=== PATIENT | male | born 1980 | race Caucasian/White ===

== ENCOUNTER 2021-03-17 15:19 | Emergency (ER) | payer OTHER ==
[2021-03-17] MEDS ORDERED: Sodium Chloride 0.9% 1000 ML 1,000 ML ONE (15:39)
[2021-03-17] MEDS ORDERED: Sodium Chloride 0.9% 1000 ML 1,000 ML IV SCH (15:45)
[2021-03-17 15:46] LABS: Absolute Neutrophil Ct (ANC) 5.66 (1.4-6.9); BASOPHIL % 0.2 % (0.0-0.4); Basophil (Absolute #) 0.02 (0-0.4); Eosinophil % 0.6 % (0.00-5.0); Eosinophil (Absolute #) 0.05 (0-0.5); Hematocrit 48.1 % (42-50); Hemoglobin 15.3 gm/dl (12.5-18.0); Lymphocyte (Absolute #) 1.87 (1.0-4.6); Lymphocytes % 22.6 % (24.0-44.0); Mean Cell Volume 97.8 fl (78-100); Mean Corpuscular Hemoglobin 31.1 pg (26-32); Mean Corpuscular Hgb Concent. 31.8 g/dl (32-36); Mean Platelet Volume 9.7 fl (7.5-11.0); Monocyte (Absolute #) 0.69 (0.0-1.3); Monocytes % 8.3 % (0.0-12.0); Neutrophil % 68.3 % (36.0-66.0); Platelet Count 258 K/mm3 (150-450); Red Blood Count 4.92 M/mm3 (4.1-5.6); Red Cell Distribution Width 13.4 % (11.5-14.0); White Blood Count 8.3 K/mm3 (4.0-10.5)
[2021-03-17] MEDS ORDERED: Compazine 10 MG/2 ML IV ONE (15:48)
[2021-03-17] MEDS ORDERED: ANTIVERT 25 MG PO ONE (15:48)
[2021-03-17 15:50] LABS: Appearance CLEAR (CLEAR); Bilirubin NEGATIVE (NEGATIVE); Blood NEGATIVE Ery/ul (0-5); Glucose NEGATIVE (NEGATIVE); Ketones NEGATIVE (NEGATIVE); Leukocyte Esterase TRACE (NEGATIVE); Mucus SLIGHT /HPF (NEGATIVE); Nitrite NEGATIVE (NEGATIVE); Protein,Urine Dip NEGATIVE (Negative); Specific Gravity 1.008 (1.005-1.025); Urobilinogen NEGATIVE mg/dL (0-1)
[2021-03-17] MEDS ORDERED: Compazine 10 MG/2 ML ONE (15:50)
[2021-03-17] MEDS ORDERED: ANTIVERT 25 MG ONE (15:50)
[2021-03-17 15:51] LABS: ALBUMIN 4.2 g/dL (3.5-5.0); ALKALINE PHOSPHATASE 60 U/L (38-126); ANION GAP 14.4 MEQ/L (5-15); BLOOD UREA NITROGEN 12 mg/dL (9-20); CHLORIDE 103 mmol/L (98-107); Calcium 8.9 mg/dL (8.4-10.2); Carbon Dioxide 27 mmol/L (22-30); EST GLOMERULAR FILTRATION RATE > 60.0 ML/MIN; ETHYL ALCOHOL < 10 mg/dL (0-10); Glucose 122 mg/dL (74-106); MAGNESIUM 1.9 mg/dL (1.6-2.3); Potassium 4.5 mmol/L (3.5-5.1); SGOT/AST 31 U/L (17-59); SGPT/ALT 47 U/L (0-50); SODIUM 140 mmol/L (137-145)
[2021-03-17 16:05] LABS: Amphetamine,Urine NEGATIVE (NEGATIVE); Barbiturate,Urine NEGATIVE (NEGATIVE); Benzodiazepine,Urine NEGATIVE (NEGATIVE); Cocaine,Urine NEGATIVE (NEGATIVE); Methadone,Urine NEGATIVE (NEGATIVE); Opiate,Urine NEGATIVE (NEGATIVE); PCP,Urine NEGATIVE (NEGATIVE); THC,Urine NEGATIVE (NEGATIVE)
--- NOTE | 2021-03-17 17:53 | ERPHSYRPT ---
- History of Present Illness Time Seen by Provider: 03/17/21 15:40 Source: patient Exam Limitations: no limitations Patient Subjective Stated Complaint: pt has c/o dizziness, headache, nausea, vomiting, and pain in the base of the neck. pt states that he was watching tv an d the flash of the tv caused him to have pain in his eyes, head, dizziness, nausea/vomitting. pt PERRLA, breathing easily on cot, breath sounds clear. skin pwd. no weakness noted. Triage Nursing Assessment: see above Physician History: Patient is a 40-year-old male presents to our emergency department for evaluation of headache dizziness nausea and vomiting. Patient has been experiencing these symptoms for approximately 1 month. Patient followed up with his primary care doctor. An MRI was completed. MRI suggestive of possible pseudotumor cerebri. Patient currently has an appointment scheduled with a neurologist in [place]. However the appointment is not until May. Patient states he was at home watching TV. Patient states the flashing lights on the TV triggered his symptoms. No trauma. No fever. Headache is primarily at the base of his neck. Symptoms are mild to moderate in intensity. No specific worsening improving factors. Patient is otherwise healthy. He voices no other complaints or concerns at this time. Timing/Duration: today Severity: moderate Modifying Factors: Improves With: other (Bright lights while watching television triggered symptoms.) Associated Symptoms: nausea, vomiting, No shortness of breath, No chest pain, No fever, No syncope, No seizure Allergies/Adverse Reactions: codeine Allergy (Verified 03/17/21 15:31) Penicillins Allergy (Verified 03/17/21 15:31) Home Medications: Albuterol 2.5 mg/3 ml Neb [Proventil 2.5 mg/3 ml Neb] 1 vial IH Q6HPRN PRN 03/17/21 [History] Fluticasone/Umeclidin/Vilanter [Trelegy Ellipta 100-62.5-25] 2 puff IH Q6H 03/17/21 [History] Metoprolol Succinate 50 mg PO DAILY 03/17/21 [History] Trazodone HCl 50 mg [Desyrel 50 mg] 50 mg PO DAILY 03/17/21 [History] Hx Tetanus, Diphtheria Vaccination/Date Given: Yes Hx Influenza Vaccination/Date Given: Yes Hx Pneumococcal Vaccination/Date Given: No Immunizations Up to Date: Yes Travel Risk - International Travel Have you traveled outside of the country in past 3 weeks: No - Coronavirus Screening Are you exhibiting any of the following symptoms?: No Close contact with a COVID-19 positive Pt in past 14-21 Days: No - Vaccine Status Have you recieved a Covid-19 vaccination: No - Review of Systems Constitutional: No Symptoms, No Fever, No Chills Eyes: No Symptoms Ears, Nose, & Throat: No Symptoms Respiratory: No Symptoms, No Cough, No Dyspnea Cardiac: No Symptoms, No Chest Pain, No Edema, No Syncope Abdominal/Gastrointestinal: No Symptoms, No Abdominal Pain, No Nausea, No Vomiting, No Diarrhea Genitourinary Symptoms: No Symptoms, No Dysuria Musculoskeletal: No Symptoms, No Back Pain, No Neck Pain Skin: No Symptoms, No Rash Neurological: No Symptoms, No Dizziness, No Focal Weakness, No Sensory Changes Psychological: No Symptoms Endocrine: No Symptoms Hematologic/Lymphatic: No Symptoms Immunological/Allergic: No Symptoms All Other Systems: Reviewed and Negative - Past Medical History Pertinent Past Medical History: Yes Neurological History: No Pertinent History ENT History: No Pertinent History Cardiac History: Hypertension Respiratory History: COPD Endocrine Medical History: No Pertinent History Musculoskeletal History: No Pertinent History GI Medical History: No Pertinent History History: No Pertinent History Psycho-Social History: No Pertinent History Male Reproductive Disorders: No Pertinent History - Past Surgical History Past Surgical History: No - Social History Smoking Status: Current every day smoker Drug Use: none - Nursing Vital Signs Nursing Vital Signs: Initial Vital Signs Pulse Rate 92 H 03/17/21 15:20 Respiratory Rate 24 03/17/21 15:20 Blood Pressure 177/110 03/17/21 15:20 O2 Sat by Pulse Oximetry 94 L 03/17/21 15:20 Pain Scale Pain Intensity 2 - Physical Exam General Appearance: no apparent distress, alert Eye Exam: PERRL/EOMI, eyes nml inspection Ears, Nose, Throat Exam: normal ENT inspection, TMs normal, pharynx normal, moist mucous membranes Neck Exam: normal inspection, non-tender, supple, full range of motion Respiratory Exam: normal breath sounds, lungs clear, airway intact, No respiratory distress Cardiovascular Exam: regular rate/rhythm, normal heart sounds, normal peripheral pulses Gastrointestinal/Abdomen Exam: soft, normal bowel sounds, No tenderness, No mass Back Exam: normal inspection, normal range of motion, No CVA tenderness, No vertebral tenderness Extremity Exam: normal inspection, normal range of motion, pelvis stable Neurologic Exam: alert, oriented x 3, cooperative, normal mood/affect, nml cerebellar function, nml station & gait, sensation nml, No motor deficits Skin Exam: normal color, warm, dry, No rash Lymphatic Exam: No adenopathy SpO2 Interpretation: normal SpO2: 94 O2 Delivery: Room Air - Course Nursing assessment & vital signs reviewed: Yes EKG Interpreted by Me: RATE, Sinus Rhythm, NORMAL AXIS, NORMAL INTERVALS - CT Exams Head CT Interpretation: Tele-radiologist Report (Continued normal CT head without and CT head venogram compared to MRI brain with contrast exam 7 days ago from [facility] Stacey Pantoja.) Ordered Tests: Active Orders 24 hr Category Date Time Status Recovery Assistant STAT Care 03/17/21 15:37 Active EKG-ER Only STAT Care 03/17/21 15:36 Active IV Insertion STAT Care 03/17/21 15:36 Active Pulse Oximetry (ED) STAT Care 03/17/21 15:36 Active HEAD W/WO CONTRAST [CT] Stat Exams 03/17/21 18:16 Taken CBC W DIFF Stat Lab 03/17/21 15:40 Completed CMP Stat Lab 03/17/21 15:40 Completed ETHYL ALCOHOL Stat Lab 03/17/21 15:40 Completed MAGNESIUM Stat Lab 03/17/21 15:40 Completed TROPONIN Q3H Lab 03/17/21 15:40 Completed TROPONIN Q3H Lab 03/17/21 19:08 Completed TROPONIN Q3H Lab 03/17/21 21:45 Ordered TROPONIN Q3H Lab 03/18/21 00:45 Ordered TROPONIN Q3H Lab 03/18/21 03:45 Ordered UA W/RFX UR CULTURE Stat Lab 03/17/21 15:37 Completed Urine Triage Profile Stat Lab 03/17/21 15:37 Completed Medication Summary Generic Name Dose Route Start Last Admin Trade Name Freq PRN Reason Stop Dose Admin Sodium Chloride 1,000 mls @ 100 mls/hr 03/17/21 15:45 03/17/21 15:40 Sodium Chloride 0.9% 1000 Ml IV 04/16/21 15:44 100 mls/hr .Q10H EDEN Administration Discontinued Medications Generic Name Dose Route Start Last Admin Trade Name Freq PRN Reason Stop Dose Admin Meclizine HCl 25 mg 03/17/21 15:48 03/17/21 15:51 Meclizine Hcl 25 Mg Tablet PO 03/17/21 15:49 25 mg STAT ONE Administration Meclizine HCl Confirm 03/17/21 15:50 Meclizine Hcl 25 Mg Tablet Administered 03/17/21 15:51 Dose 25 mg .ROUTE .[email or web address] ONE Prochlorperazine Edisylate 10 mg 03/17/21 15:48 03/17/21 15:51 Prochlorperazine Edisylate 10 Mg/2 Ml Vial IV 03/17/21 15:49 10 mg STAT ONE Administration Prochlorperazine Edisylate Confirm 03/17/21 15:50 Prochlorperazine Edisylate 10 Mg/2 Ml Vial Administered 03/17/21 15:51 Dose 10 mg .ROUTE .[employer] ONE Lab/Rad Data: Laboratory Result Diagrams 03/17/21 15:40 03/17/21 15:40 Laboratory Results 03/17/21 03/17/21 03/17/21 Range/Units 19:08 15:40 15:40 WBC (4.0-10.5) K/mm3 RBC (4.1-5.6) M/mm3 Hgb (12.5-18.0) gm/dl Hct (42-50) % MCV (78-100) fl MCH (26-32) pg MCHC (32-36) g/dl RDW (11.5-14.0) % Plt Count (150-450) K/mm3 MPV (7.5-11.0) fl Gran % (36.0-66.0) % Eos # (Auto) (0-0.5) Absolute Lymphs (auto) (1.0-4.6) Absolute Monos (auto) (0.0-1.3) Lymphocytes % (24.0-44.0) % Monocytes % (0.0-12.0) % Eosinophils % (0.00-5.0) % Basophils % (0.0-0.4) % Absolute Granulocytes (1.4-6.9) Basophils # (0-0.4) Sodium 140 (137-145) mmol/L Potassium 4.5 (3.5-5.1) mmol/L Chloride 103 (98-107) mmol/L Carbon Dioxide 27 (22-30) mmol/L Anion Gap 14.4 (5-15) MEQ/L BUN 12 (9-20) mg/dL Creatinine 0.90 (0.66-1.25) mg/dL Estimated GFR > 60.0 ML/MIN Glucose 122 H (74-106) mg/dL Calcium 8.9 (8.4-10.2) mg/dL Magnesium 1.9 (1.6-2.3) mg/dL Total Bilirubin 0.50 (0.2-1.3) mg/dL AST 31 (17-59) U/L ALT 47 (0-50) U/L Alkaline Phosphatase 60 (38-126) U/L Troponin I 0.020 < 0.012 (0.000-0.034) ng/mL Serum Total Protein 7.0 (6.3-8.2) g/dL Albumin 4.2 (3.5-5.0) g/dL Urine Color (YELLOW) Urine Appearance (CLEAR) Urine pH (5-6) Ur Specific [place] (1.005-1.025) Urine Protein (Negative) Urine Ketones (NEGATIVE) Urine Blood (0-5) Cuco/ul Urine Nitrite (NEGATIVE) Urine Bilirubin (NEGATIVE) Urine Urobilinogen (0-1) mg/dL Ur Leukocyte Esterase (NEGATIVE) Urine WBC (Auto) (0-5) /HPF Urine RBC (Auto) (0-2) /HPF U Epithel Cells (Auto) (FEW) /HPF Urine Bacteria (Auto) (NEGATIVE) /HPF Urine Mucus (Auto) (NEGATIVE) /HPF Urine Culture Reflexed (NO) Urine Glucose (NEGATIVE) mg/dL Urine Opiates Level (NEGATIVE) Ur Methadone (NEGATIVE) Urine Barbiturates (NEGATIVE) Ur Phencyclidine (PCP) (NEGATIVE) Urine Amphetamine (NEGATIVE) U Benzodiazepine Level (NEGATIVE) Urine Cocaine (NEGATIVE) Urine Marijuana (THC) (NEGATIVE) Ethyl Alcohol < 10 (0-10) mg/dL 03/17/21 03/17/21 03/17/21 Range/Units 15:40 15:37 15:37 WBC 8.3 (4.0-10.5) K/mm3 RBC 4.92 (4.1-5.6) M/mm3 Hgb 15.3 (12.5-18.0) gm/dl Hct 48.1 (42-50) % MCV 97.8 (78-100) fl MCH 31.1 (26-32) pg MCHC 31.8 L (32-36) g/dl RDW 13.4 (11.5-14.0) % Plt Count 258 (150-450) K/mm3 MPV 9.7 (7.5-11.0) fl Gran % 68.3 H (36.0-66.0) % Eos # (Auto) 0.05 (0-0.5) Absolute Lymphs (auto) 1.87 (1.0-4.6) Absolute Monos (auto) 0.69 (0.0-1.3) Lymphocytes % 22.6 L (24.0-44.0) % Monocytes % 8.3 (0.0-12.0) % Eosinophils % 0.6 (0.00-5.0) % Basophils % 0.2 (0.0-0.4) % Absolute Granulocytes 5.66 (1.4-6.9) Basophils # 0.02 (0-0.4) Sodium (137-145) mmol/L Potassium (3.5-5.1) mmol/L Chloride (98-107) mmol/L Carbon Dioxide (22-30) mmol/L Anion Gap (5-15) MEQ/L BUN (9-20) mg/dL Creatinine (0.66-1.25) mg/dL Estimated GFR ML/MIN Glucose (74-106) mg/dL Calcium (8.4-10.2) mg/dL Magnesium (1.6-2.3) mg/dL Total Bilirubin (0.2-1.3) mg/dL AST (17-59) U/L ALT (0-50) U/L Alkaline Phosphatase (38-126) U/L Troponin I (0.000-0.034) ng/mL Serum Total Protein (6.3-8.2) g/dL Albumin (3.5-5.0) g/dL Urine Color STRAW (YELLOW) Urine Appearance CLEAR (CLEAR) Urine pH 7.0 (5-6) Ur Specific [place] 1.008 (1.005-1.025) Urine Protein NEGATIVE (Negative) Urine Ketones NEGATIVE (NEGATIVE) Urine Blood NEGATIVE (0-5) Cuco/ul Urine Nitrite NEGATIVE (NEGATIVE) Urine Bilirubin NEGATIVE (NEGATIVE) Urine Urobilinogen NEGATIVE (0-1) mg/dL Ur Leukocyte Esterase TRACE (NEGATIVE) Urine WBC (Auto) 3-5 (0-5) /HPF Urine RBC (Auto) NONE (0-2) /HPF U Epithel Cells (Auto) NONE (FEW) /HPF Urine Bacteria (Auto) NONE (NEGATIVE) /HPF Urine Mucus (Auto) SLIGHT (NEGATIVE) /HPF Urine Culture Reflexed NO (NO) Urine Glucose NEGATIVE (NEGATIVE) mg/dL Urine Opiates Level NEGATIVE (NEGATIVE) Ur Methadone NEGATIVE (NEGATIVE) Urine Barbiturates NEGATIVE (NEGATIVE) Ur Phencyclidine (PCP) NEGATIVE (NEGATIVE) Urine Amphetamine NEGATIVE (NEGATIVE) U Benzodiazepine Level NEGATIVE (NEGATIVE) Urine Cocaine NEGATIVE (NEGATIVE) Urine Marijuana (THC) NEGATIVE (NEGATIVE) Ethyl Alcohol (0-10) mg/dL - Progress Progress: improved Progress Note: Case discussed with teleneuro neurologist. She believes that patient may potentially have pseudotumor cerebri. She is advising a CT venogram to rule out venous sinus thrombosis. She also advised an outpatient ophthalmology consult. Patient currently has a neurology follow-up. She is requesting that patient work on obtaining an earlier/sooner neurology consult. It is currently scheduled for May. If CT venogram is negative patient may be sent home. Patient advises considering a muscle relaxer and/or a Medrol Dosepak as long as the patient is not diabetic. No further recommendations. We will obtain a CT venogram at this time. 03/17/21 17:52 Second troponin is 0.02. This is slightly higher than the first however it is still negative. Lab reports a sample was hemolyzed. We advised second troponin but patient does not want to wait. He is asymptomatic. Patient states he will be discharged home. Portions of this note were created with voice recognition technology. There may be grammatical, spelling, punctuation or sound alike errors 03/17/21 20:19 Counseled pt/family regarding: lab results, diagnosis, need for follow-up, rad results - Departure Departure Disposition: Home Clinical Impression: Headache, Possible pseudotumor cerebri, Dizziness, Nausea Condition: Stable Critical Care Time: No Referrals: DUANE,JHONY L., [employer] [Primary Care Provider] - Follow up/PCP as directed Instructions: Vertigo (a Type of Dizziness) (DC) Additional Instructions: You will require an outpatient ophthalmology evaluation for funduscopic exam to look for disc edema, and to rule out other eye pathology that could be causing pain behind your eye. Follow-up with your neurologist as scheduled. Try to change the follow-up date. The sooner the better. Consider weight loss. Tobacco cessation as well. Discharge/Care Plan JOHNATHAN KELLY was seen on 03/17/21 in the Emergency Room. The patient was counseled regarding Diagnosis,Lab results, Imaging studies, need for follow up and when to return to the Emergency Room. Prescriptions given: Discharge Note I have spoken with the patient and/or caregivers. I have explained the patient's condition, diagnosis and treatment plan based on the information available to me at this time. I have answered the patient's and/or caregiver's questions and add ressed any concerns. The patient and/or caregivers have as good understanding of the patient's diagnosis, condition and treatment plan as can be expected at this point. The vital signs have been stable. The patient's condition is stable and appropriate for discharge from the emergency department. The patient will pursue further outpatient evaluation with the primary care physician or other designated or consulting physician as outlined in the discharge instructions. The patient and/or caregivers are agreeable to this plan of care and follow-up instructions have been explained in detail. The patient and/or caregivers have received these instruction. The patient/and or caregivers are aware that any significant change in condition or worsening of symptoms should prompt an immediate return to this or the closest emergency department or call 911. Prescriptions: Ondansetron ODT 4 MG [Zofran Odt 4 mg] 4 mg PO Q6H PRN PRN #10 tablet PRN Reason: Vomiting Meclizine HCl 25 mg [Antivert 25 mg] 25 mg PO Q8H PRN PRN 5 Days #15 tablet PRN Reason: Dizziness
[2021-03-17 19:41] VITALS: O2SAT 94
[2021-03-17 20:10] VITALS: BP 128/70; PULSE 80
--- NOTE | 2021-03-18 08:46 | XRAY ---
Indication: Headache, pain behind eyes, nausea, and vertigo. Multiple contiguous axial images obtained through the head prior to and following 100 cc Isovue 370 contrast. Sagittal and coronal reformatted images obtained. Comparison: None. There is outside MRI brain with contrast exam from [facility] dated March 10, 2021. Ventriculosulcal pattern appears symmetric. No acute intracranial hemorrhage, abnormal extra-axial fluid collection, or mass effect. Fourth ventricle is midline without hydrocephalus. Lee-white matter differentiation preserved. Both cerebellar tonsils slightly protrude through the foramen magnum. Postcontrast images are negative for abnormal enhancing intra or extra-axial mass. Major arteries and veins/sinuses are unremarkable. Bony calvarium intact with incidental mild hyperostosis frontalis interna. Small 1 cm right and 5 mm left maxillary sinus polyps/retention cysts. Remaining paranasal sinuses and mastoid air cells are clear. Impression: 1. Low-lying cerebellar tonsils without Chiari malformation, similar to outside MRI exam. 2. Remaining CT head with and without contrast exam is negative. 3. Incidental hyperostosis frontalis interna.
== END 2021-03-17 20:20 | disposition home or self-care (01) ==
LOC: ED 15:19
DX: R51.9 Headache, unspecified (principal); R42 Dizziness and giddiness; R11.2 Nausea with vomiting, unspecified; I10 Essential (primary) hypertension; Z72.0 Tobacco use
CPT/HCPCS: 36000; 36415; 70470; 80053; 80307; 81001; 83735; 84484; 85025; 93005; 93041; 94760; 96374; 99284; A9270-GY; G0480

== ENCOUNTER 2021-03-31 10:51 | Emergency (ER) | payer OTHER ==
[2021-03-31 10:57] VITALS: O2SAT 97
[2021-03-31] MEDS ORDERED: BABY ASPIRIN 81 MG CHEW PO ONE (11:00)
--- NOTE | 2021-03-31 11:00 | ERPHSYRPT ---
- History of Present Illness Time Seen by Provider: 03/31/21 10:59 Source: patient Exam Limitations: no limitations Patient Subjective Stated Complaint: Pt states "I have been sick for the past week but this morning I woke up and could not catch my breath. I have been hav ing trouble in my left lung and my left leg hurts." Triage Nursing Assessment: Pt presented alert and oriented X 3, skin wpd Pt ambulates with an upright steady gait, able to speak in full sentences. Pt resting comfortably on the bed. Physician History: This is a 40-year-old morbidly obese white male who has been sick for approximately 1 week including cough chest pain with coughing weakness and myalgias and arthralgias. This morning, the patient states he could not catch his breath with exertion and had worsening left chest pain and associated left leg pain. Patient's medical illnesses include morbid obesity, hypertension and COPD. He states he has not had any fevers nausea vomiting or diarrhea. He has no abdominal pain. Timing/Duration: week(s) (1) Activities at Onset: activity Severity of Dyspnea-Max: moderate Severity of Dyspnea-Current: moderate Possible Cause: no prior episodes Modifying Factors: Improves With: activity Associated Symptoms: chest pain/discomfort Allergies/Adverse Reactions: codeine Allergy (Verified 03/17/21 15:31) Penicillins Allergy (Verified 03/17/21 15:31) Home Medications: Albuterol 2.5 mg/3 ml Neb [Proventil 2.5 mg/3 ml Neb] 1 vial IH Q6HPRN PRN 03/17/21 [History] Metoprolol Succinate 50 mg PO DAILY 03/17/21 [History] Trazodone HCl 50 mg [Desyrel 50 mg] 50 mg PO DAILY 03/17/21 [History] Hx Tetanus, Diphtheria Vaccination/Date Given: Yes Hx Influenza Vaccination/Date Given: Yes Hx Pneumococcal Vaccination/Date Given: No Immunizations Up to Date: Yes Travel Risk - International Travel Have you traveled outside of the country in past 3 weeks: No - Coronavirus Screening Are you exhibiting any of the following symptoms?: No Close contact with a COVID-19 positive Pt in past 14-21 Days: No - Vaccine Status Have you recieved a Covid-19 vaccination: No - Review of Systems Constitutional: No Symptoms Eyes: No Symptoms Ears, Nose, & Throat: No Symptoms Respiratory: Dyspnea Cardiac: Chest Pain Abdominal/Gastrointestinal: No Symptoms Genitourinary Symptoms: No Symptoms Musculoskeletal: Other (Left calf pain) Skin: No Symptoms Neurological: No Symptoms Psychological: No Symptoms Endocrine: No Symptoms Hematologic/Lymphatic: No Symptoms Immunological/Allergic: No Symptoms All Other Systems: Reviewed and Negative - Past Medical History Pertinent Past Medical History: Yes Neurological History: No Pertinent History ENT History: No Pertinent History Cardiac History: Hypertension Respiratory History: COPD Endocrine Medical History: No Pertinent History Musculoskeletal History: No Pertinent History GI Medical History: No Pertinent History History: No Pertinent History Psycho-Social History: No Pertinent History Male Reproductive Disorders: No Pertinent History - Past Surgical History Past Surgical History: No - Social History Smoking Status: Current every day smoker How long have you smoked: years Exposure to second hand smoke: Yes Drug Use: none Patient Lives Alone: No - Nursing Vital Signs Nursing Vital Signs: Initial Vital Signs Temperature 98.2 F 03/31/21 10:51 Pulse Rate 90 03/31/21 10:51 Respiratory Rate 24 03/31/21 10:51 Blood Pressure 167/99 03/31/21 10:51 O2 Sat by Pulse Oximetry 98 03/31/21 10:51 Pain Scale Pain Intensity 2 - Physical Exam General Appearance: mild distress, alert, anxiety, obese Eye Exam: PERRL/EOMI, eyes nml inspection Ears, Nose, Throat Exam: hearing grossly normal, normal ENT inspection, normal pharynx Neck Exam: normal inspection, non-tender, supple, full range of motion Respiratory Exam: normal breath sounds, chest tenderness (Left upper lobe), lungs clear, airway intact, No respiratory distress Cardiovascular/Chest Exam: normal heart sounds, regular rate/rhythm Abdominal/Gastrointestinal Exam: soft, normal bowel sounds, No tenderness Rectal Exam: not done Extremity Exam: normal range of motion, normal inspection, normal capillary refill, pelvis stable, calf tenderness (Left side) Neurologic Exam: alert, oriented x 3, cooperative, vice president diversity II-XII nml as tested, normal mood/affect, nml cerebellar function, nml station & gait, sensation nml Skin Exam: normal color, warm, dry Lymphatic Exam: No adenopathy SpO2 Interpretation: normal SpO2: 97 O2 Delivery: Room Air - Course Nursing assessment & vital signs reviewed: Yes EKG Interpreted by Me: RATE (83), Sinus Rhythm, NORMAL AXIS, NORMAL INTERVALS, NORMAL QRS, NORMAL ST-T, Other (No acute ischemic changes. No significant changes from EKG dated 03/17/2021) Ordered Tests: Active Orders 24 hr Category Date Time Status EKG-ER Only STAT Care 03/31/21 11:00 Active IV Insertion STAT Care 03/31/21 11:00 Active CHEST 1 VIEW (PORTABLE) Stat Exams 03/31/21 11:00 Completed CHEST WITH CONTRAST [CT] Stat Exams 03/31/21 13:03 Completed VENOUS UNILAT/LIMITED EXTREMIT [US] Stat Exams 03/31/21 13:03 Completed CBC W DIFF Stat Lab 03/31/21 11:00 Completed CMP Stat Lab 03/31/21 11:00 Completed D-DIMER QUANTITATIVE Stat Lab 03/31/21 11:00 Completed INFLUENZA A+B STEPHANIE Stat Lab 03/31/21 11:46 Completed [place] Screen Stat Lab 03/31/21 Completed NT PRO BNP Stat Lab 03/31/21 11:00 Completed PROTIME WITH INR Stat Lab 03/31/21 11:00 Completed TROPONIN Q3H Lab 03/31/21 11:37 Completed TROPONIN Q3H Lab 03/31/21 14:00 Ordered TROPONIN Q3H Lab 03/31/21 17:00 Ordered TROPONIN Q3H Lab 03/31/21 20:00 Ordered TROPONIN Q3H Lab 03/31/21 23:00 Ordered Medication Summary Generic Name Dose Route Start Last Admin Trade Name Freq PRN Reason Stop Dose Admin Sodium Chloride 1,000 mls @ 100 mls/hr 03/31/21 11:15 03/31/21 11:59 Sodium Chloride 0.9% 1000 Ml IV 04/30/21 11:14 100 mls/hr .Q10H EDEN Administration Discontinued Medications Generic Name Dose Route Start Last Admin Trade Name Freq PRN Reason Stop Dose Admin Aspirin 324 mg 03/31/21 11:00 03/31/21 11:58 Aspirin 81 Mg Tab.Chew PO 03/31/21 11:01 324 mg STAT ONE Administration Aspirin Confirm 03/31/21 11:53 Aspirin 81 Mg Tab.Chew Administered 03/31/21 11:54 Dose 324 mg .ROUTE .STK-MED ONE Hydromorphone HCl 1 mg 03/31/21 12:01 03/31/21 12:06 Hydromorphone 1 Mg/1ml Inj 1 Mg/Ml Syringe IV 03/31/21 12:02 1 mg STAT ONE Administration Hydromorphone HCl Confirm 03/31/21 12:06 Hydromorphone 1 Mg/1ml Inj 1 Mg/Ml Syringe Administered 03/31/21 12:07 Dose 1 mg .ROUTE .STK-MED ONE Ondansetron HCl 4 mg 03/31/21 12:01 03/31/21 12:06 Ondansetron Hcl 4 Mg/2 Ml Vial IV 03/31/21 12:02 4 mg STAT ONE Administration Ondansetron HCl Confirm 03/31/21 12:06 Ondansetron Hcl 4 Mg/2 Ml Vial Administered 03/31/21 12:07 Dose 4 mg .ROUTE .STK-MED ONE Lab/Rad Data: Laboratory Result Diagrams 03/31/21 11:00 03/31/21 11:00 Laboratory Results 03/31/21 03/31/21 03/31/21 Range/Units Unknown 11:46 11:37 WBC (4.0-10.5) K/mm3 RBC (4.1-5.6) M/mm3 Hgb (12.5-18.0) gm/dl Hct (42-50) % MCV (78-100) fl MCH (26-32) pg MCHC (32-36) g/dl RDW (11.5-14.0) % Plt Count (150-450) K/mm3 MPV (7.5-11.0) fl Gran % (36.0-66.0) % Eos # (Auto) (0-0.5) Absolute Lymphs (auto) (1.0-4.6) Absolute Monos (auto) (0.0-1.3) Lymphocytes % (24.0-44.0) % Monocytes % (0.0-12.0) % Eosinophils % (0.00-5.0) % Basophils % (0.0-0.4) % Absolute Granulocytes (1.4-6.9) Basophils # (0-0.4) PT (9.4-12.5) SECONDS INR (0.8-3.0) D-Dimer (215-500) ng/mL Sodium (137-145) mmol/L Potassium (3.5-5.1) mmol/L Chloride (98-107) mmol/L Carbon Dioxide (22-30) mmol/L Anion Gap (5-15) MEQ/L BUN (9-20) mg/dL Creatinine (0.66-1.25) mg/dL Estimated GFR ML/MIN Glucose (74-106) mg/dL Calcium (8.4-10.2) mg/dL Total Bilirubin (0.2-1.3) mg/dL AST (17-59) U/L ALT (0-50) U/L Alkaline Phosphatase (38-126) U/L Troponin I < 0.012 (0.000-0.034) ng/mL NT-Pro-B Natriuret Pep (0-450) pg/mL Serum Total Protein (6.3-8.2) g/dL Albumin (3.5-5.0) g/dL Monoscreen NEGATIVE (Negative) Influenza Type A Ag NEGATIVE (NEGATIVE) Influenza Type B Ag NEGATIVE (NEGATIVE) 03/31/21 03/31/21 03/31/21 Range/Units 11:00 11:00 11:00 WBC 7.3 (4.0-10.5) K/mm3 RBC 4.82 (4.1-5.6) M/mm3 Hgb 15.2 (12.5-18.0) gm/dl Hct 46.1 (42-50) % MCV 95.6 (78-100) fl MCH 31.5 (26-32) pg MCHC 33.0 (32-36) g/dl RDW 13.1 (11.5-14.0) % Plt Count 280 (150-450) K/mm3 MPV 10.0 (7.5-11.0) fl Gran % 61.5 (36.0-66.0) % Eos # (Auto) 0.03 (0-0.5) Absolute Lymphs (auto) 2.09 (1.0-4.6) Absolute Monos (auto) 0.68 (0.0-1.3) Lymphocytes % 28.7 (24.0-44.0) % Monocytes % 9.3 (0.0-12.0) % Eosinophils % 0.4 (0.00-5.0) % Basophils % 0.1 (0.0-0.4) % Absolute Granulocytes 4.47 (1.4-6.9) Basophils # 0.01 (0-0.4) PT 12.6 H (9.4-12.5) SECONDS INR 1.07 (0.8-3.0) D-Dimer 637 H* (215-500) ng/mL Sodium 139 (137-145) mmol/L Potassium 4.1 (3.5-5.1) mmol/L Chloride 105 (98-107) mmol/L Carbon Dioxide 22 (22-30) mmol/L Anion Gap 15.7 H (5-15) MEQ/L BUN 9 (9-20) mg/dL Creatinine 0.73 (0.66-1.25) mg/dL Estimated GFR > 60.0 ML/MIN Glucose 134 H (74-106) mg/dL Calcium 9.1 (8.4-10.2) mg/dL Total Bilirubin 0.60 (0.2-1.3) mg/dL AST 28 (17-59) U/L ALT 33 (0-50) U/L Alkaline Phosphatase 63 (38-126) U/L Troponin I (0.000-0.034) ng/mL NT-Pro-B Natriuret Pep 14.4 (0-450) pg/mL Serum Total Protein 7.0 (6.3-8.2) g/dL Albumin 4.3 (3.5-5.0) g/dL Monoscreen (Negative) Influenza Type A Ag (NEGATIVE) Influenza Type B Ag (NEGATIVE) - Progress Progress: improved, re-examined Air Movement: good Progress Note: 03/31/21 11:58 Chest x-ray shows an interval enlarging presumed large hiatal hernia. Patient refusing aspirin. 03/31/21 13:02 Patient's venous Doppler left lower extremity shows no DVT. 03/31/21 14:12 CTA of the chest shows pulmonary embolism evaluation is limited secondary to po or opacification however there is no obvious central pulmonary embolus present. In addition, there is a right more gag knee diaphragmatic hernia with omental fat herniated in the right lung base. Blood Culture(s) Obtained: Yes Counseled pt/family regarding: lab results, diagnosis, need for follow-up, rad results - Departure Departure Disposition: Home Clinical Impression: Left-sided chest pain, Large hiatal hernia Condition: Stable Critical Care Time: No Referrals: JHONY ZEPEDA, LAP[facility] STITCHER [Primary Care Provider] - Follow up/PCP as directed Additional Instructions: Take all your medication as prescribed. Follow-up with your primary care physician today to make arrangements for follow-up appointment.
[2021-03-31] MEDS ORDERED: Sodium Chloride 0.9% 1000 ML 1,000 ML IV SCH (11:15)
--- NOTE | 2021-03-31 11:29 | XRAY ---
Indication: Left chest pain. Comparison: January 20, 2009. Portable apical lordotic chest remains clear. Heart not enlarged with interval enlarging presumed large hiatal hernia with intrathoracic stomach right lung base. Bony thorax intact.
[2021-03-31] MEDS ORDERED: BABY ASPIRIN 81 MG CHEW ONE (11:53)
[2021-03-31] MEDS ORDERED: Sodium Chloride 0.9% 1000 ML 1,000 ML ONE (11:54)
[2021-03-31] MEDS ORDERED: Zofran 4 MG/2 ML VIAL IV ONE (12:01)
[2021-03-31] MEDS ORDERED: Hydromorphone 1 mg/ml Injection IV ONE (12:01)
[2021-03-31] MEDS ORDERED: Hydromorphone 1 mg/ml Injection ONE (12:06)
[2021-03-31] MEDS ORDERED: Zofran 4 MG/2 ML VIAL ONE (12:06)
[2021-03-31 12:14] LABS: Absolute Neutrophil Ct (ANC) 4.47 (1.4-6.9); BASOPHIL % 0.1 % (0.0-0.4); Basophil (Absolute #) 0.01 (0-0.4); Eosinophil % 0.4 % (0.00-5.0); Eosinophil (Absolute #) 0.03 (0-0.5); Hematocrit 46.1 % (42-50); Hemoglobin 15.2 gm/dl (12.5-18.0); Lymphocyte (Absolute #) 2.09 (1.0-4.6); Lymphocytes % 28.7 % (24.0-44.0); Mean Cell Volume 95.6 fl (78-100); Mean Corpuscular Hemoglobin 31.5 pg (26-32); Monocyte (Absolute #) 0.68 (0.0-1.3); Monocytes % 9.3 % (0.0-12.0); Neutrophil % 61.5 % (36.0-66.0); Platelet Count 280 K/mm3 (150-450); Red Blood Count 4.82 M/mm3 (4.1-5.6); Red Cell Distribution Width 13.1 % (11.5-14.0); White Blood Count 7.3 K/mm3 (4.0-10.5)
[2021-03-31 12:19] LABS: INR 1.07 (0.8-3.0); PROTIME 12.6 SECONDS (9.4-12.5)
[2021-03-31 12:44] LABS: ALBUMIN 4.3 g/dL (3.5-5.0); ALKALINE PHOSPHATASE 63 U/L (38-126); ANION GAP 15.7 MEQ/L (5-15); BLOOD UREA NITROGEN 9 mg/dL (9-20); CHLORIDE 105 mmol/L (98-107); Calcium 9.1 mg/dL (8.4-10.2); Carbon Dioxide 22 mmol/L (22-30); Creatinine 1 0.73 mg/dL (0.66-1.25); EST GLOMERULAR FILTRATION RATE > 60.0 ML/MIN; Glucose 134 mg/dL (74-106); NT PRO BNP 14.4 pg/mL (0-450); Potassium 4.1 mmol/L (3.5-5.1); SGOT/AST 28 U/L (17-59); SGPT/ALT 33 U/L (0-50); SODIUM 139 mmol/L (137-145)
--- NOTE | 2021-03-31 13:16 | XRAY ---
Indication: Calf pain. Two-dimensional sonogram and color Doppler imaging of the major venous vessels of the left leg performed. Comparison: None No thrombus seen in the examined deep venous vessels of the left leg including greater saphenous vein. Veins demonstrate normal compressibility. Venous waveforms are normal with and without augmentation. Impression: Left leg negative for DVT.
[2021-03-31 13:58] LABS: INFLUENZA A NEGATIVE (NEGATIVE); INFLUENZA B NEGATIVE (NEGATIVE)
--- NOTE | 2021-03-31 14:02 | XRAY ---
Indication: Short of breath. Elevated d-dimer. Multiple contiguous axial images obtained through the chest using 100 cc Isovue 370 contrast and PE protocol. Comparison: None There is poor opacification of the pulmonary arteries limiting evaluation for pulmonary embolus. No obvious central pulmonary embolus. Heart is not enlarged. Aorta is normal in course and caliber. No pathologic mediastinal/hilar lymphadenopathy. 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 Lungs demonstrates a 4 mm indeterminant right lower lobe subpleural noncalcified nodule, minimal left base fibrosis/scarring, and medial right lower lobe compressive atelectasis secondary to Morgagni hernia. No infiltrate or effusion. Bony thorax intact with mild degenerative changes throughout the spine. Limited upper abdomen demonstrates diffuse fatty liver. Impression: 1. Pulmonary embolus evaluation limited due to poor contrast opacification. No obvious central pulmonary embolus. 2. 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 3. Indeterminant 4 mm right lower lobe noncalcified nodule. Outside comparison studies recommended if available. If not, follow-up per Fleischner guidelines. 4. Incidental fatty liver.
[2021-03-31 14:58] VITALS: BP 127/85; PULSE 88
== END 2021-03-31 15:00 | disposition home or self-care (01) ==
LOC: ED 10:51
DX: K44.9 Diaphragmatic hernia without obstruction or gangrene (principal); R07.9 Chest pain, unspecified; R05.9 Cough, unspecified; R53.1 Weakness; M79.10 Myalgia, unspecified site; E66.01 Morbid (severe) obesity due to excess calories; I10 Essential (primary) hypertension; M79.662 Pain in left lower leg; Z72.0 Tobacco use; Z79.899 Other long term (current) drug therapy
CPT/HCPCS: 36000; 36415; 71045; 71260; 80053; 83880; 84484; 85025; 85379; 85610; 86308; 87400; 93005; 93971; 96374; 96375; 99284; U0003; J1170; J2405; A9270-GY

== ENCOUNTER 2021-06-07 09:58 | Day surgery (SDC) | payer OTHER ==
--- NOTE | 2021-06-07 08:53 | HP ---
DATE OF SURGERY: 06/07/2021 HISTORY OF PRESENT ILLNESS: The patient is a 40-year-old had some nausea, gas pressure pushing up, had COVID bad in the past. It felt like something ripped in the past, had some upper abdominal pain, bloating, pressure of unclear etiology. He is in need of upper endoscopy to evaluate for gastritis, esophagitis, peptic ulcer disease, hiatal hernia or other etiology and will also check gallbladder ultrasound. PAST MEDICAL HISTORY: Includes asthma, chronic obstructive pulmonary disease. History of increasing intracranial pressure and some hypertension. PAST SURGICAL HISTORY: Denied prior abdominal surgery. MEDICATIONS: ALLERGIES: PENICILLIN. CODEINE. FAMILY HISTORY: Negative in regards to this problem. SOCIAL HISTORY: Chews one can, denies alcohol abuse. REVIEW OF SYSTEMS: Fourteen systems reviewed. No chest pain or palpitations. Other systems negative or noncontributory as above and per preadmission questionnaire. PHYSICAL EXAMINATION: GENERAL: No acute distress. HEENT: Sclerae nonicteric. NECK: No JVD. CHEST: Equal excursion, nonlabored breathing. CVS: Regular rate and rhythm. ABDOMEN: Soft, nontender, obese. EXTREMITIES: No significant edema. NEURO: Alert, oriented, moving extremities symmetrically. PSYCH: Appropriate mood and affect. IMPRESSION: Upper abdominal aches and pains, bloating, pressure. I feel he would benefit from upper endoscopy possible biopsy. Risks and benefits explained in detail including but not limited to bleeding or infection, risk of bowel injury or perforation possibly requiring open procedure, risk of missed or nondiagnosis or incomplete exam possibly requiring barium swallow, other studies or procedures, possibility of inability to diagnose the etiology of his symptoms. General risk of anesthesia or sedation, consent obtained. He understands and agrees to the planned procedure, will proceed with EGD possible biopsy as an outpatient.
--- NOTE | 2021-06-07 10:29 | XRAY ---
Indication: Preop exam. Comparison: March 31, 2021. PA/lateral chest again demonstrates large CT proven medial right base Morgagni diaphragmatic hernia. Remaining lungs are clear. Heart not enlarged. Bony thorax intact with mild degenerative changes. Impression: Gross stable large right base Morgagni diaphragmatic hernia. Negative for acute pneumonic process or CHF.
[2021-06-07] MEDS ORDERED: Versed 2 MG/2 ML Injection IV PRN (10:57)
[2021-06-07] MEDS ORDERED: Lactated Ringers 1,000 ML IV ONE (10:58)
[2021-06-07] MEDS ORDERED: Versed 2 MG/2 ML Injection ONE (10:58)
[2021-06-07] MEDS ORDERED: Lactated Ringers 1,000 ML IV SCH (11:00)
[2021-06-07] MEDS ORDERED: DIPRIVAN 200 MG/20 ML IV ONE (11:54)
[2021-06-07] MEDS ORDERED: Xylocaine-Mpf 2% 5 Ml Vial ONE (11:54)
[2021-06-07 12:49] VITALS: O2SAT 95
[2021-06-07 13:27] VITALS: BP 142/82; PULSE 88
--- NOTE | 2021-06-08 07:51 | OP ---
SURGERY DATE/TIME: 06/07/2021 1154 PREOPERATIVE DIAGNOSIS: Prior history of COVID infection, history of some upper abdominal aches, bloating and pressure. POSTOPERATIVE DIAGNOSES: 1) Minimal to mild gastritis. 2) Very short segment of distal esophagitis versus normal variation of gastroesophageal junction, path pending. PROCEDURES: 1) EGD with cold biopsy of the small bowel to evaluate for celiac sprue. 2) Cold biopsy of antrum to evaluate for Helicobacter pylori. 3) Cold biopsy distal esophagus to evaluate for esophagitis. SURGEON: Dr. Chava Chilel. ANESTHESIA: MAC by Murali Leahy CRNA. ESTIMATED BLOOD LOSS: Minimal. INDICATIONS: As noted above. Risks and benefits explained in detail and not limited to and consent obtained. DESCRIPTION OF PROCEDURE AND FINDINGS: The patient is taken to the operating room. MAC anesthesia introduced. After official time out and no disagreement with planned procedure, a bite block positioned. Video gastroscope easily passed down the esophagus through the patent pylorus. Third portion of the duodenum. Third, second, first portion of duodenum grossly unremarkable. No signs of any obvious ulcers or significant inflammation but given his symptom complaints cold biopsy taken to evaluate for celiac sprue. Good hemostasis noted. Scope pulled back in the stomach. He had some mild gastric erythema. No evidence of ulcers or masses. Cold biopsy taken of the antrum to evaluate for Helicobacter pylori. Good hemostasis noted. On retroflex, the gastroesophageal junction seemed to be fairly snug against the scope. The patient did have prior history of Morgagni diaphragmatic hernia but it did not have a visible sliding hernia that could be easily seen endoscopically at this point at least at the gastroesophageal junction area. The scope pulled up. Gastroesophageal junction 40 cm. There was a very short segment of 1 or 2 mm of a little bit of salmon pink mucosa or inflammation distal esophagus. Cold biopsy taken to evaluate for path. Good hemostasis noted. After cold biopsy of distal esophagus good hemostasis noted. There were no signs of any large polyps, masses or other mucosal lesions on withdrawal of the scope up the remainder of esophagus. Findings discussed with family out in the waiting area. Will see him back in the office next week.
== END 2021-06-07 13:20 | disposition home or self-care (01) ==
LOC: SDC 09:58
PROVIDERS: ATTEND Surgery
DX: K29.70 Gastritis, unspecified, without bleeding (principal); K20.90 Esophagitis, unspecified without bleeding; R10.10 Upper abdominal pain, unspecified; Z86.16 Personal history of COVID-19
CPT/HCPCS: 71046; J2250; J2704

== ENCOUNTER 2021-06-20 12:23 | Emergency (ER) | payer OTHER ==
--- NOTE | 2021-06-20 12:59 | ERPHSYRPT ---
- History of Present Illness Historian: patient Exam Limitations: no limitations Patient Subjective Stated Complaint: pt states abd pain x2 weeks worsening the last 3days. pt states that he's been having more issues since having covid in march. Triage Nursing Assessment: pt A & Ox3. pt comes in with abd pain x 2 weeks worsening over the last 3 days. pt states he's having diarrhea and nausea. pt denies vomitting. pt states that his pain is in his umbilicus region and to LLQ. pt states that he has a HIDA scan and his gallbladder was functioning at 75% and also had an upper GI with no abnormal findings 2 weeks ago. pt is referred to specialist but unable to see until October. pt states pain is a 5/10 and describes it as burning. Physician History: 40 yo wm w periumbilical/L abdominal-flank pain x 3 days. Pt has been having abdominal pain since he had CV19 in April and has been seeing a surgeon about it. He has had nausea wo vomiting/diarrhea but denies melena/hematochezia/dysuria/hematuria/fever/chest pain. Timing/Duration: other (3 days/Chronic since Apr) Abdominal Pain Onset Location: periumbilical (L abdomen-L flank) Severity of Pain-Max: severe Severity of Pain-Current: moderate Modifying Factors: Improves With: nothing Associated Symptoms: diarrhea, loss of appetite, nausea, No back, No chest pain, No diaphoresis, No fever/chills, No fatigue, No headache, No heartburn, No neck pain, No rash, No shortness of breath, No syncope, No testicular pain, No vomiting, No weakness Previous symptoms: same symptoms as today Allergies/Adverse Reactions: codeine Allergy (Verified 06/07/21 10:52) Hives Penicillins Allergy (Verified 06/07/21 10:52) Hives Home Medications: Albuterol 2.5 mg/3 ml Neb [Proventil 2.5 mg/3 ml Neb] 1 vial IH Q6HPRN PRN 03/17/21 [History] Metoprolol Succinate 50 mg PO DAILY 03/17/21 [History] Buspirone HCl 5 mg [Buspar 5 mg] 10 mg PO BID 06/04/21 [History] Fluticasone/Salmeterol 230/21* [Advair Hfa 230/21 Mcg MDI] 2 puff IH BIDRT 06/04/21 [History] PANTOPRAZOLE 40 mg Tablet [Protonix 40MG Tablet] 40 mg PO QAM 06/04/21 [History] Omeprazole Magnesium [Prilosec Otc] 20 mg PO DAILY 06/20/21 [History] Rimegepant Sulfate [Nurtec Odt] 75 mg PO DAILY PRN 06/20/21 [History] Hx Tetanus, Diphtheria Vaccination/Date Given: Yes Hx Influenza Vaccination/Date Given: Yes Hx Pneumococcal Vaccination/Date Given: No Immunizations Up to Date: Yes Travel Risk - International Travel Have you traveled outside of the country in past 3 weeks: No (N) If Yes, where;: N - Coronavirus Screening Are you exhibiting any of the following symptoms?: No Close contact with a COVID-19 positive Pt in past 14-21 Days: No - Vaccine Status Have you recieved a Covid-19 vaccination: No - Review of Systems Constitutional: No Symptoms Eyes: No Symptoms Ears, Nose, & Throat: No Symptoms Respiratory: No Symptoms Cardiac: No Symptoms Abdominal/Gastrointestinal: Abdominal Pain, Nausea, Diarrhea, Appetite Changes, No Vomiting, No Constipation, No Hematemesis, No Hematochezia, No Melena, No Dysphagia Genitourinary Symptoms: Flank Pain, No Dysuria, No Frequency, No Hematuria, No Hesitancy, No Incontinence, No Urgency, No Urinary Retention, No Testicle Pain, No Penile Discharge Musculoskeletal: No Symptoms Skin: No Symptoms Neurological: No Symptoms Psychological: No Symptoms Endocrine: No Symptoms Hematologic/Lymphatic: No Symptoms Immunological/Allergic: No Symptoms - Past Medical History Pertinent Past Medical History: Yes Neurological History: No Pertinent History ENT History: No Pertinent History Cardiac History: Hypertension Respiratory History: Asthma, COPD, Sleep Apnea Endocrine Medical History: No Pertinent History Musculoskeletal History: No Pertinent History GI Medical History: No Pertinent History History: No Pertinent History Psycho-Social History: No Pertinent History Male Reproductive Disorders: No Pertinent History Other Medical History: covid in ,bad case,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 - Past Surgical History Past Surgical History: No Neuro Surgical History: No Pertinent History Cardiac: No Pertinent History Respiratory: No Pertinent History Gastrointestinal: No Pertinent History Genitourinary: No Pertinent History Musculoskeletal: No Pertinent History Male Surgical History: No Pertinent History Other Surgical History: no surgery - Social History Smoking Status: Former smoker (2ppd until Apr) How long have you smoked: years Exposure to second hand smoke: Yes Drug Use: none Patient Lives Alone: No Significant Family History: no pertinent family hx - Nursing Vital Signs Nursing Vital Signs: Initial Vital Signs Temperature 97.8 F 06/20/21 12:24 Pulse Rate 82 06/20/21 12:24 Respiratory Rate 18 06/20/21 12:24 Blood Pressure 147/79 06/20/21 12:24 O2 Sat by Pulse Oximetry 98 06/20/21 12:24 Pain Scale Pain Intensity 5 Hypertensive - Physical Exam General Appearance: no apparent distress (In pain) Eye Exam: PERRL/EOMI, eyes nml inspection Ears, Nose, Throat Exam: normal ENT inspection, TMs normal, pharynx normal, moist mucous membranes Neck Exam: normal inspection, non-tender, supple, full range of motion, No meningismus, No mass, No Brudzinski, No Kernig's, No carotid bruit Respiratory Exam: normal breath sounds, lungs clear, airway intact, No chest tenderness, No respiratory distress Cardiovascular Exam: regular rate/rhythm, normal heart sounds, normal peripheral pulses, capillary refill <2 sec, No murmur Gastrointestinal/Abdomen Exam: soft, normal bowel sounds, tenderness (Mod TTP periumbilical and L abdomen/guarding wo rebound) Extremity Exam: normal inspection, normal range of motion Neurologic Exam: alert, oriented x 3, cooperative, 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, normal mood/affect, nml cerebellar function, nml station & gait, sensation nml Skin Exam: normal color, warm, dry Lymphatic Exam: No adenopathy SpO2 Interpretation: normal SpO2: 98 O2 Delivery: Room Air - Course Nursing assessment & vital signs reviewed: Yes - CT Exams Abdomen/Pelvis CT Interpretation: Tele-radiologist Report (Nothing acute) Ordered Tests: Active Orders 24 hr Category Date Time Status IV Insertion STAT Care 06/20/21 12:35 Active ABDOMEN AND PELVIS W&WO CONTRA [CT] Stat Exams 06/20/21 13:58 Taken AMYLASE Stat Lab 06/20/21 12:45 Completed CBC W DIFF Stat Lab 06/20/21 12:45 Completed CMP Stat Lab 06/20/21 12:45 Completed LIPASE Stat Lab 06/20/21 12:45 Completed TROPONIN Q3H Lab 06/20/21 12:45 Completed TROPONIN Q3H Lab 06/20/21 15:45 Ordered TROPONIN Q3H Lab 06/20/21 18:45 Ordered TROPONIN Q3H Lab 06/20/21 21:45 Ordered TROPONIN Q3H Lab 06/21/21 00:45 Ordered Medication Summary Discontinued Medications Generic Name Dose Route Start Last Admin Trade Name Nelly PRN Reason Stop Dose Admin Fentanyl Citrate 100 mcg 06/20/21 13:41 06/20/21 13:43 Fentanyl Citrate 100 Mcg/2 Ml* Vial IV 06/20/21 13:42 100 mcg STAT ONE Administration Fentanyl Citrate Confirm 06/20/21 13:42 Fentanyl Citrate 100 Mcg/2 Ml* Vial Administered 06/20/21 13:43 Dose 100 mcg .ROUTE .STK-MED ONE Sodium Chloride 1,000 mls @ 999 mls/hr 06/20/21 13:34 06/20/21 13:35 Sodium Chloride 0.9% 1000 Ml IV 06/20/21 14:34 999 mls/hr .Q1H1M STA Administration Sodium Chloride Confirm 06/20/21 13:34 Sodium Chloride 0.9% 1000 Ml Administered 06/20/21 13:35 Dose 1,000 mls @ ud .ROUTE .STK-MED ONE Ondansetron HCl 4 mg 06/20/21 13:34 06/20/21 13:36 Ondansetron Hcl 4 Mg/2 Ml Vial IV 06/20/21 13:35 4 mg STAT ONE Administration Ondansetron HCl Confirm 06/20/21 13:34 Ondansetron Hcl 4 Mg/2 Ml Vial Administered 06/20/21 13:35 Dose 4 mg .ROUTE .STK-MED ONE Lab/Rad Data: Laboratory Result Diagrams 06/20/21 12:45 06/20/21 12:45 Laboratory Results 06/20/21 06/20/21 06/20/21 Range/Units 12:45 12:45 12:45 WBC 7.3 (4.0-10.5) K/mm3 RBC 4.60 (4.1-5.6) M/mm3 Hgb 14.7 (12.5-18.0) gm/dl Hct 43.2 (42-50) % MCV 93.9 (78-100) fl MCH 32.0 (26-32) pg MCHC 34.0 (32-36) g/dl RDW 12.9 (11.5-14.0) % Plt Count 249 (150-450) K/mm3 MPV 9.9 (7.5-11.0) fl Gran % 61.3 (36.0-66.0) % Eos # (Auto) 0.04 (0-0.5) Absolute Lymphs (auto) 2.10 (1.0-4.6) Absolute Monos (auto) 0.67 (0.0-1.3) Lymphocytes % 28.7 (24.0-44.0) % Monocytes % 9.2 (0.0-12.0) % Eosinophils % 0.5 (0.00-5.0) % Basophils % 0.3 (0.0-0.4) % Absolute Granulocytes 4.48 (1.4-6.9) Basophils # 0.02 (0-0.4) Sodium 141 (137-145) mmol/L Potassium 4.1 (3.5-5.1) mmol/L Chloride 105 (98-107) mmol/L Carbon Dioxide 26 (22-30) mmol/L Anion Gap 14.4 (5-15) MEQ/L BUN 17 (9-20) mg/dL Creatinine 0.74 (0.66-1.25) mg/dL Estimated GFR > 60.0 ML/MIN Glucose 121 H (74-106) mg/dL Calcium 9.3 (8.4-10.2) mg/dL Total Bilirubin 0.60 (0.2-1.3) mg/dL AST 26 (17-59) U/L ALT 28 (0-50) U/L Alkaline Phosphatase 61 (38-126) U/L Troponin I < 0.012 (0.000-0.034) ng/mL Serum Total Protein 7.5 (6.3-8.2) g/dL Albumin 4.5 (3.5-5.0) g/dL Amylase 41 (30-110) U/L Lipase 44 (23-300) U/L Urinalys Dipstick Clnc Urine Color (YELLOW) Urine Appearance (CLEAR) Urine pH (5-6) Ur Specific [place] (1.005-1.025) POC Urine Protein Conf (Negative) Urine Ketones (NEGATIVE) Urine Nitrite (NEGATIVE) Urine Bilirubin (NEGATIVE) Urine Urobilinogen (0-1) mg/dL Urine Leukocytes (NEGATIVE) Urine WBC (Auto) (0-5) /HPF Urine RBC (Auto) (0-2) /HPF U Epithel Cells (Auto) (FEW) /HPF Urine Bacteria (Auto) (NEGATIVE) /HPF Urine RBC (0-5) Cuco/ul Ur Culture Indicated? Urine Glucose (NEGATIVE) mg/dL 06/20/21 Range/Units 12:36 WBC (4.0-10.5) K/mm3 RBC (4.1-5.6) M/mm3 Hgb (12.5-18.0) gm/dl Hct (42-50) % MCV (78-100) fl MCH (26-32) pg MCHC (32-36) g/dl RDW (11.5-14.0) % Plt Count (150-450) K/mm3 MPV (7.5-11.0) fl Gran % (36.0-66.0) % Eos # (Auto) (0-0.5) Absolute Lymphs (auto) (1.0-4.6) Absolute Monos (auto) (0.0-1.3) Lymphocytes % (24.0-44.0) % Monocytes % (0.0-12.0) % Eosinophils % (0.00-5.0) % Basophils % (0.0-0.4) % Absolute Granulocytes (1.4-6.9) Basophils # (0-0.4) Sodium (137-145) mmol/L Potassium (3.5-5.1) mmol/L Chloride (98-107) mmol/L Carbon Dioxide (22-30) mmol/L Anion Gap (5-15) MEQ/L BUN (9-20) mg/dL Creatinine (0.66-1.25) mg/dL Estimated GFR ML/MIN Glucose (74-106) mg/dL Calcium (8.4-10.2) mg/dL Total Bilirubin (0.2-1.3) mg/dL AST (17-59) U/L ALT (0-50) U/L Alkaline Phosphatase (38-126) U/L Troponin I (0.000-0.034) ng/mL Serum Total Protein (6.3-8.2) g/dL Albumin (3.5-5.0) g/dL Amylase (30-110) U/L Lipase (23-300) U/L Urinalys Dipstick Clnc MAIN LAB Urine Color YELLOW (YELLOW) Urine Appearance CLEAR (CLEAR) Urine pH 6.0 (5-6) Ur Specific [place] >=1.030 (1.005-1.025) POC Urine Protein Conf NEGATIVE (Negative) Urine Ketones NEGATIVE (NEGATIVE) Urine Nitrite NEGATIVE (NEGATIVE) Urine Bilirubin NEGATIVE (NEGATIVE) Urine Urobilinogen 0.2 (0-1) mg/dL Urine Leukocytes SMALL (NEGATIVE) Urine WBC (Auto) 11-15 (0-5) /HPF Urine RBC (Auto) NONE (0-2) /HPF U Epithel Cells (Auto) RARE (FEW) /HPF Urine Bacteria (Auto) NONE (NEGATIVE) /HPF Urine RBC NEGATIVE (0-5) Cuco/ul Ur Culture Indicated? NO Urine Glucose NEGATIVE (NEGATIVE) mg/dL - Progress Progress: improved Progress Note: 06/20/21 14:06 1L NS Bolus/4mg IV Zofran 100umg Iv Fentanyl 06/20/21 15:04 50umg IV Fentanyl Counseled pt/family regarding: lab results, diagnosis, need for follow-up, rad results - Departure Departure Disposition: Home Clinical Impression: Abdominal pain Condition: Stable Critical Care Time: No Referrals: BRYANNA ONEAL, RAVINDER [Primary Care Provider] - Follow up/PCP as directed Instructions: Acute Abdomen (Belly Pain), Adult (DC) Additional Instructions: Follow up with your family MD or Surgeon/GI specialist Return to ER for increasing abdominal pain or temperature greater than 100.5 Bentyl as needed for pain Macrobid for Urinary Tract Infection Prescriptions: Dicyclomine HCl 20 mg [Bentyl 20 mg] 20 mg PO Q6HPRN PRN #20 tablet PRN Reason: Pain Nitrofurantoin Macro 100 mg [Macrobid 100MG Capsule] 100 mg PO BID #10
[2021-06-20 13:11] LABS: Absolute Neutrophil Ct (ANC) 4.48 (1.4-6.9); Basophil (Absolute #) 0.02 (0-0.4); Eosinophil % 0.5 % (0.00-5.0); Eosinophil (Absolute #) 0.04 (0-0.5); Hematocrit 43.2 % (42-50); Hemoglobin 14.7 gm/dl (12.5-18.0); Lymphocytes % 28.7 % (24.0-44.0); Mean Cell Volume 93.9 fl (78-100); Mean Platelet Volume 9.9 fl (7.5-11.0); Monocyte (Absolute #) 0.67 (0.0-1.3); Monocytes % 9.2 % (0.0-12.0); Neutrophil % 61.3 % (36.0-66.0); Platelet Count 249 K/mm3 (150-450); Red Cell Distribution Width 12.9 % (11.5-14.0); White Blood Count 7.3 K/mm3 (4.0-10.5)
[2021-06-20 13:11] LABS: Appearance CLEAR (CLEAR); Bilirubin NEGATIVE (NEGATIVE); Dipstick done @ ? MAIN LAB; Glucose NEGATIVE (NEGATIVE); Ketones NEGATIVE (NEGATIVE); Nitrite NEGATIVE (NEGATIVE); Protein,Urine Dip NEGATIVE (Negative); RBC NEGATIVE Ery/ul (0-5); Specific Gravity >=1.030 (1.005-1.025); Urobilinogen 0.2 mg/dL (0-1)
[2021-06-20 13:12] LABS: Epithelial Cells RARE /HPF (FEW)
[2021-06-20 13:22] LABS: ALBUMIN 4.5 g/dL (3.5-5.0); ALKALINE PHOSPHATASE 61 U/L (38-126); AMYLASE 41 U/L (30-110); ANION GAP 14.4 MEQ/L (5-15); BLOOD UREA NITROGEN 17 mg/dL (9-20); CHLORIDE 105 mmol/L (98-107); Calcium 9.3 mg/dL (8.4-10.2); Carbon Dioxide 26 mmol/L (22-30); Creatinine 1 0.74 mg/dL (0.66-1.25); EST GLOMERULAR FILTRATION RATE > 60.0 ML/MIN; Glucose 121 mg/dL (74-106); LIPASE 44 U/L (23-300); Potassium 4.1 mmol/L (3.5-5.1); SGOT/AST 26 U/L (17-59); SGPT/ALT 28 U/L (0-50); SODIUM 141 mmol/L (137-145); Total Protein 7.5 g/dL (6.3-8.2)
[2021-06-20] MEDS ORDERED: Zofran 4 MG/2 ML VIAL ONE (13:34)
[2021-06-20] MEDS ORDERED: Zofran 4 MG/2 ML VIAL IV ONE (13:34)
[2021-06-20] MEDS ORDERED: Sodium Chloride 0.9% 1000 ML 1,000 ML ONE (13:34)
[2021-06-20] MEDS ORDERED: Sodium Chloride 0.9% 1000 ML 1,000 ML IV STA (13:34)
[2021-06-20] MEDS ORDERED: SUBLIMAZE 100 MCG/2 ML IV ONE ×2 (13:41→15:03)
[2021-06-20] MEDS ORDERED: SUBLIMAZE 100 MCG/2 ML ONE ×2 (13:42→15:10)
[2021-06-20 14:06] VITALS: O2SAT 98
[2021-06-20 15:24] VITALS: BP 105/74; PULSE 76
--- NOTE | 2021-06-20 19:09 | XRAY ---
Indication: Abdomen pain. Diarrhea and bloating. UTI. Multiple contiguous axial images obtained through the abdomen and pelvis prior to and following 80 cc Isovue 370 contrast as well as water. Comparison: None Lung bases demonstrates moderate-sized posterior right base and small posterior left base Bochdalek hernias with herniated omental fat with mild compressive atelectasis. Indeterminant 4 mm right lower lobe subpleural noncalcified nodule. Heart not enlarged. Noncontrasted images are negative for pathologic visceral calcifications/calculi. Noncontrasted stomach and bowel loops appear nonobstructed. Appendix not seen. No free fluid/air. 22.8 cm fatty hepatomegaly. Postcontrast images demonstrates normal visceral enhancement and renal excretion. Remaining liver, gallbladder, pancreas, spleen, adrenal glands, kidneys, ureters, bladder, and aorta appear unremarkable. No pathological retroperitoneal lymphadenopathy. Osseous structures intact with mild degenerative changes throughout the thoracolumbar spine. Impression: 1. Indeterminate 4 mm right lower lobe noncalcified nodule. Finding is unchanged with respect to CT PE study March 31, 2021. Consider follow-up per Fleischner guidelines. 2. Incidental bilateral Bochdalek hernias, fatty hepatomegaly, and multilevel degenerative spondylosis. 3. Remaining CT abdomen/pelvis with and without contrast exam is negative. Comment: Preliminary interpretation made by [facility]. No critical discrepancy.
== END 2021-06-20 15:43 | disposition home or self-care (01) ==
LOC: ED 12:23
DX: R10.33 Periumbilical pain (principal); R11.0 Nausea; I10 Essential (primary) hypertension; J44.9 Chronic obstructive pulmonary disease, unspecified; Z86.16 Personal history of COVID-19; Z79.899 Other long term (current) drug therapy
CPT/HCPCS: 36000; 36415; 74178; 80053; 81015; 82150; 83690; 84484; 85025; 96360; 96374; 96375; 96376; 99284; J2405; J3010

== ENCOUNTER 2021-07-11 19:12 | Emergency (ER) | payer OTHER ==
[2021-07-11] MEDS ORDERED: Zofran 4 MG/2 ML VIAL IV ONE (19:44)
[2021-07-11] MEDS ORDERED: MORPHINE SULFATE 4 MG INJ IV ONE (19:44)
[2021-07-11] MEDS ORDERED: Sodium Chloride 0.9% 1000 ML 1,000 ML IV STA ×2 (19:44→21:18)
[2021-07-11] MEDS ORDERED: PROTONIX 40 MG IV IV ONE ×2 (19:44→19:51)
[2021-07-11] MEDS ORDERED: Zofran 4 MG/2 ML VIAL ONE (19:51)
[2021-07-11] MEDS ORDERED: MORPHINE SULFATE 4 MG INJ ONE (19:51)
[2021-07-11] MEDS ORDERED: Sodium Chloride 0.9% 1000 ML 1,000 ML ONE ×2 (19:52→21:30)
--- NOTE | 2021-07-11 20:02 | ERPHSYRPT ---
- History of Present Illness Time Seen by Provider: 07/11/21 19:21 Historian: patient Exam Limitations: no limitations Patient Subjective Stated Complaint: pt states he was diagnosed with a liver cyst 3 weeks ago. states he has not been able to eat or drink since. today has been feeling worse, has only voided x1 today, has headache and feels lightheaded when getting up Triage Nursing Assessment: pt alert and oriented, answers questions approp. pt ambulatory with slow steady gait noted, respirations nonlabored. skin warm and dry. abd soft, pt reports pain to rt upper abd with palpation. bowel sounds present x4. Physician History: 40-year-old male presented in the ER with chief complaint of abdominal pain, nausea, decreased oral intake for the last 3 weeks. Patient has been seen in multiple imaging done including MRI/MRCP for mass in the liver and uncinate process of pancreas and does have appointment with his primary informatica developer tomorrow presented with increasing nausea and weakness. Pain is dull aching to sharp without any significant aggravating or relieving factors. Pain is similar to previous. Timing/Duration: week(s) (3), constant, worse Activities at Onset: rest Quality: cramping, dullness, sharpness Abdominal Pain Onset Location: RUQ, epigastric, periumbilical Pain Radiation: no radiation Severity of Pain-Max: moderate Severity of Pain-Current: moderate Associated Symptoms: nausea Previous symptoms: same symptoms as today Allergies/Adverse Reactions: codeine Allergy (Verified 07/11/21 19:34) Hives Penicillins Allergy (Verified 07/11/21 19:34) Hives Home Medications: Albuterol 2.5 mg/3 ml Neb [Proventil 2.5 mg/3 ml Neb] 1 vial IH Q6HPRN PRN 03/17/21 [History] Metoprolol Succinate 50 mg PO DAILY 03/17/21 [History] Fluticasone/Salmeterol 230/21* [Advair Hfa 230/21 Mcg MDI] 2 puff IH BIDRT 06/04/21 [History] PANTOPRAZOLE 40 mg Tablet [Protonix 40MG Tablet] 40 mg PO QAM 06/04/21 [History] Omeprazole Magnesium [Prilosec Otc] 20 mg PO DAILY 06/20/21 [History] Rimegepant Sulfate [Nurtec Odt] 75 mg PO DAILY PRN 06/20/21 [History] Hx Tetanus, Diphtheria Vaccination/Date Given: Yes Hx Influenza Vaccination/Date Given: No Hx Pneumococcal Vaccination/Date Given: No Immunizations Up to Date: Yes Travel Risk - International Travel Have you traveled outside of the country in past 3 weeks: No - Coronavirus Screening Are you exhibiting any of the following symptoms?: No Close contact with a COVID-19 positive Pt in past 14-21 Days: No - Vaccine Status Have you recieved a Covid-19 vaccination: No - Review of Systems Constitutional: No Symptoms Eyes: No Symptoms Ears, Nose, & Throat: No Symptoms Respiratory: No Symptoms Cardiac: No Symptoms Abdominal/Gastrointestinal: Abdominal Pain, Nausea Genitourinary Symptoms: No Symptoms Musculoskeletal: No Symptoms Skin: No Symptoms Neurological: No Symptoms Endocrine: No Symptoms Hematologic/Lymphatic: No Symptoms Immunological/Allergic: No Symptoms - Past Medical History Pertinent Past Medical History: Yes Neurological History: No Pertinent History ENT History: No Pertinent History Cardiac History: Hypertension Respiratory History: Asthma, COPD, Sleep Apnea Endocrine Medical History: No Pertinent History Musculoskeletal History: No Pertinent History GI Medical History: No Pertinent History History: No Pertinent History Psycho-Social History: No Pertinent History Male Reproductive Disorders: No Pertinent History Other Medical History: covid in ,bad case,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 diagnosed with liver cyst 3 weeks ago - Past Surgical History Past Surgical History: No Neuro Surgical History: No Pertinent History Cardiac: No Pertinent History Respiratory: No Pertinent History Gastrointestinal: No Pertinent History Genitourinary: No Pertinent History Musculoskeletal: No Pertinent History Male Surgical History: No Pertinent History Other Surgical History: no surgery - Social History Smoking Status: Former smoker How long have you smoked: years Exposure to second hand smoke: Yes Drug Use: none Patient Lives Alone: No Significant Family History: no pertinent family hx - Nursing Vital Signs Nursing Vital Signs: Initial Vital Signs Temperature 98.3 F 07/11/21 19:18 Pulse Rate 73 07/11/21 19:18 Respiratory Rate 18 07/11/21 19:18 Blood Pressure 149/87 07/11/21 19:18 O2 Sat by Pulse Oximetry 97 07/11/21 19:18 Pain Scale Pain Intensity 3 - Physical Exam General Appearance: no apparent distress, alert Ears, Nose, Throat Exam: normal ENT inspection, TMs normal, pharynx normal Neck Exam: normal inspection, non-tender, supple, full range of motion Respiratory Exam: normal breath sounds, lungs clear Cardiovascular Exam: regular rate/rhythm, normal heart sounds Gastrointestinal/Abdomen Exam: soft, normal bowel sounds, tenderness (Right upper quadrant/epigastrium) Back Exam: normal inspection, normal range of motion Extremity Exam: normal inspection, normal range of motion, pelvis stable Neurologic Exam: alert, oriented x 3, cooperative Skin Exam: normal color SpO2 Interpretation: normal SpO2: 97 O2 Delivery: Room Air Ordered Tests: Active Orders 24 hr Category Date Time Status IV Insertion STAT Care 07/11/21 19:47 Active CBC W DIFF Stat Lab 07/11/21 20:09 Completed CMP Stat Lab 07/11/21 20:09 Completed LIPASE Stat Lab 07/11/21 20:09 Completed Medication Summary Discontinued Medications Generic Name Dose Route Start Last Admin Trade Name Freq PRN Reason Stop Dose Admin Sodium Chloride 1,000 mls @ 999 mls/hr 07/11/21 19:44 07/11/21 21:19 Sodium Chloride 0.9% 1000 Ml IV 07/11/21 20:44 Infused .Q1H1M STA Infusion Sodium Chloride Confirm 07/11/21 19:52 Sodium Chloride 0.9% 1000 Ml Administered 07/11/21 19:53 Dose 1,000 mls @ ud .ROUTE .STK-MED ONE Sodium Chloride 1,000 mls @ 999 mls/hr 07/11/21 21:18 07/11/21 21:31 Sodium Chloride 0.9% 1000 Ml IV 07/11/21 22:18 999 mls/hr .Q1H1M STA Administration Sodium Chloride Confirm 07/11/21 21:30 Sodium Chloride 0.9% 1000 Ml Administered 07/11/21 21:31 Dose 1,000 mls @ ud .ROUTE .STK-MED ONE Morphine Sulfate 4 mg 07/11/21 19:44 07/11/21 20:10 Morphine Sulfate 4 Mg/Ml Injection IV 07/11/21 19:45 4 mg STAT ONE Administration Morphine Sulfate Confirm 07/11/21 19:51 Morphine Sulfate 4 Mg/Ml Injection Administered 07/11/21 19:52 Dose 4 mg .ROUTE .STK-MED ONE Ondansetron HCl 4 mg 07/11/21 19:44 07/11/21 19:56 Ondansetron Hcl 4 Mg/2 Ml Vial IV 07/11/21 19:45 4 mg STAT ONE Administration Ondansetron HCl Confirm 07/11/21 19:51 Ondansetron Hcl 4 Mg/2 Ml Vial Administered 07/11/21 19:52 Dose 4 mg .ROUTE .STK-MED ONE Pantoprazole Sodium 40 mg 07/11/21 19:44 07/11/21 20:00 Pantoprazole 40 Mg Vial IV 07/11/21 19:45 40 mg STAT ONE Administration Pantoprazole Sodium Confirm 07/11/21 19:51 Pantoprazole 40 Mg Vial Administered 07/11/21 19:52 Dose 40 mg IV .STK-MED ONE Lab/Rad Data: Laboratory Result Diagrams 07/11/21 20:09 07/11/21 20:09 Laboratory Results 07/11/21 07/11/21 Range/Units 20:09 20:09 WBC 11.8 H (4.0-10.5) K/mm3 RBC 4.73 (4.1-5.6) M/mm3 Hgb 15.1 (12.5-18.0) gm/dl Hct 44.7 (42-50) % MCV 94.5 (78-100) fl MCH 31.9 (26-32) pg MCHC 33.8 (32-36) g/dl RDW 12.7 (11.5-14.0) % Plt Count 292 (150-450) K/mm3 MPV 10.6 (7.5-11.0) fl Gran % 66.6 H (36.0-66.0) % Eos # (Auto) 0.04 (0-0.5) Absolute Lymphs (auto) 2.83 (1.0-4.6) Absolute Monos (auto) 1.05 (0.0-1.3) Lymphocytes % 23.9 L (24.0-44.0) % Monocytes % 8.9 (0.0-12.0) % Eosinophils % 0.3 (0.00-5.0) % Basophils % 0.3 (0.0-0.4) % Absolute Granulocytes 7.87 H (1.4-6.9) Basophils # 0.03 (0-0.4) Sodium 139 (137-145) mmol/L Potassium 4.7 (3.5-5.1) mmol/L Chloride 102 (98-107) mmol/L Carbon Dioxide 25 (22-30) mmol/L Anion Gap 16.6 H (5-15) MEQ/L BUN 10 (9-20) mg/dL Creatinine 0.85 (0.66-1.25) mg/dL Estimated GFR > 60.0 ML/MIN Glucose 106 (74-106) mg/dL Calcium 9.8 (8.4-10.2) mg/dL Total Bilirubin 0.60 (0.2-1.3) mg/dL AST 26 (17-59) U/L ALT 30 (0-50) U/L Alkaline Phosphatase 72 (38-126) U/L Serum Total Protein 7.8 (6.3-8.2) g/dL Albumin 4.8 (3.5-5.0) g/dL Lipase 47 (23-300) U/L - Progress Progress: improved Progress Note: 07/11/21 22:40 Is given symptomatic treatment with fluids and morphine/Zofran, on reevaluation feeling much better. Normal white count, grossly unremarkable chemistries including liver enzymes. Patient has multiple imaging done and pain is similar to previous, do not think needs another imaging as pain is same as before. Patient is advised to keep his appointment with his informatica developer tomorrow. Discussed signs symptoms of worsening needing return to ER which he seems unde rstanding. Counseled pt/family regarding: lab results, diagnosis, need for follow-up - Departure Departure Disposition: Home Clinical Impression: Nausea, Abdominal pain Condition: Stable Critical Care Time: No Referrals: BRYANNA ONEAL NP [Primary Care Provider] - Follow up/PCP as directed (1-2 days for reevaluation) Instructions: Nausea and Vomiting, Adult (DC) Additional Instructions: Take Tylenol/ibuprofen as needed. Take Zofran/Phenergan as needed. Follow-up with your informatica developer as scheduled tomorrow. Return to ER for any worsening. Prescriptions: Promethazine HCl 25 mg [Phenergan 25 mg] 25 mg PO Q8H PRN PRN #10 tablet PRN Reason: Vomiting
[2021-07-11 20:15] LABS: Absolute Neutrophil Ct (ANC) 7.87 (1.4-6.9); Basophil (Absolute #) 0.03 (0-0.4); Eosinophil % 0.3 % (0.00-5.0); Eosinophil (Absolute #) 0.04 (0-0.5); Hematocrit 44.7 % (42-50); Hemoglobin 15.1 gm/dl (12.5-18.0); Lymphocyte (Absolute #) 2.83 (1.0-4.6); Lymphocytes % 23.9 % (24.0-44.0); Mean Cell Volume 94.5 fl (78-100); Mean Corpuscular Hemoglobin 31.9 pg (26-32); Mean Corpuscular Hgb Concent. 33.8 g/dl (32-36); Mean Platelet Volume 10.6 fl (7.5-11.0); Monocyte (Absolute #) 1.05 (0.0-1.3); Monocytes % 8.9 % (0.0-12.0); Neutrophil % 66.6 % (36.0-66.0); Platelet Count 292 K/mm3 (150-450); Red Blood Count 4.73 M/mm3 (4.1-5.6); Red Cell Distribution Width 12.7 % (11.5-14.0); White Blood Count 11.8 K/mm3 (4.0-10.5)
[2021-07-11 20:21] LABS: ALBUMIN 4.8 g/dL (3.5-5.0); ALKALINE PHOSPHATASE 72 U/L (38-126); ANION GAP 16.6 MEQ/L (5-15); BLOOD UREA NITROGEN 10 mg/dL (9-20); CHLORIDE 102 mmol/L (98-107); Calcium 9.8 mg/dL (8.4-10.2); Carbon Dioxide 25 mmol/L (22-30); Creatinine 1 0.85 mg/dL (0.66-1.25); EST GLOMERULAR FILTRATION RATE > 60.0 ML/MIN; Glucose 106 mg/dL (74-106); LIPASE 47 U/L (23-300); Potassium 4.7 mmol/L (3.5-5.1); SGOT/AST 26 U/L (17-59); SGPT/ALT 30 U/L (0-50); SODIUM 139 mmol/L (137-145); Total Protein 7.8 g/dL (6.3-8.2)
[2021-07-11 22:25] VITALS: BP 125/60
[2021-07-11 22:45] LABS: Appearance CLEAR (CLEAR); Bilirubin NEGATIVE (NEGATIVE); Dipstick done @ ? MAIN LAB; Glucose NEGATIVE (NEGATIVE); Ketones NEGATIVE (NEGATIVE); Nitrite NEGATIVE (NEGATIVE); Protein,Urine Dip NEGATIVE (Negative); RBC SMALL Ery/ul (0-5); Urobilinogen 0.2 mg/dL (0-1)
[2021-07-11 22:47] VITALS: PULSE 90; O2SAT 98
[2021-07-11 22:48] LABS: Urine Cultured Indicated? NO
== END 2021-07-11 22:48 | disposition home or self-care (01) ==
LOC: ED 19:12
DX: R11.0 Nausea (principal); R10.11 Right upper quadrant pain; R10.13 Epigastric pain; R10.33 Periumbilical pain; R53.1 Weakness; I10 Essential (primary) hypertension; J44.9 Chronic obstructive pulmonary disease, unspecified; Z79.899 Other long term (current) drug therapy
CPT/HCPCS: 36000; 36415; 80053; 81015; 83690; 85025; 96360; 96374; 96375; 99284; J2270; J2405